=== PATIENT | female | born 1950 | race Caucasian/White ===

== ENCOUNTER 2023-02-25 11:41 | Emergency (ER) | payer BC, MEDICAID ==
[~2023-02-25] VITALS: Ht 157.5 cm; Wt 61.2 kg
[2023-02-25] MEDS ORDERED: ISOPTIN (11:59)
--- NOTE | 2023-02-25 12:06 | NUR ---
patient been seen by ER physician for evaluation. Xray being done at bedside
[2023-02-25] MEDS ORDERED: NAPR-1164 PO (12:52)
--- NOTE | 2023-02-25 12:54 | NUR ---
Patient discharged to home in stable condition. Written and verbal after care instructions given. Patient verbalizes understanding of instructions. Stressed follow up or return to ER for worsening s/s.
--- NOTE | 2023-02-25 12:57 | NUR ---
Measured BP before discharge. BP is 154/77. Pt has hx of hypertension. Informed .
[2023-02-25 12:58] VITALS: BP 154/77
== END 2023-02-25 13:00 | disposition home or self-care (01) ==
LOC: ER 11:41
DX: M25.562 Pain in left knee (principal); M17.12 Unilateral primary osteoarthritis, left knee; Z79.899 Other long term (current) drug therapy
CPT/HCPCS: A4663